=== PATIENT | male | born 1955 | race Asian ===

== ENCOUNTER 2022-07-06 15:30 | Emergency (ER) | payer OTHER ==
[~2022-07-06] VITALS: Ht 172.7 cm; Wt 73.7 kg
[2022-07-06] MEDS ORDERED: IOHEXOL 350 MG/ML 100 ML VIAL ONE (16:21)
[2022-07-06] MEDS ORDERED: SODIUM CHLORIDE 0.9% 100 ML ONE (16:21)
[2022-07-06] MEDS ORDERED: METF-1211 PO (16:34)
[2022-07-06] MEDS ORDERED: LOSA-382 PO (16:35)
[2022-07-06] MEDS ORDERED: TERA2CAP10 PO (16:35)
[2022-07-06 16:36] LABS: BASOPHILS % (AUTO) 0.8 % (0.0-2.0); EOSINOPHILS % (AUTO) 1.4 % (1.0-6.0); GLUCOSE,POINT OF CARE 150 MG/DL (70-110); HEMATOCRIT 41.7 % (41-53); HEMOGLOBIN 13.5 g/dL (13.5-17.5); LYMPHOCYTES # (AUTO) 1.9 K/uL (1.0-4.8); LYMPHOCYTES % (AUTO) 14.1 % (22.0-44.0); MEAN CORPUSCULAR HEMOGLOBIN 30.7 pg (26.0-34.0); MEAN CORPUSCULAR HGB CONC 32.5 G/dL (31.0-37.0); MEAN CORPUSCULAR VOLUME 95 fL (80-100); MONOCYTES # (AUTO) 0.8 K/uL (0.1-1.0); MONOCYTES % (AUTO) 5.8 % (2.0-9.0); NEUTROPHILS # (AUTO) 10.7 K/uL (1.8-7.7); NEUTROPHILS % (AUTO) 77.9 % (40.0-70.0); PLATELET COUNT (AUTO) 398 K/uL (150-450); RED BLOOD CELL COUNT(AUTO) 4.41 MIL/uL (4.50-5.90); RED CELL DISTRIBUTION WIDTH 12.9 % (11.5-14.5)
[2022-07-06] MEDS ORDERED: CLON-441 PO (16:36)
[2022-07-06] MEDS ORDERED: ATOR20TA86 PO (16:37)
[2022-07-06] MEDS ORDERED: METO25 PO (16:38)
[2022-07-06] MEDS ORDERED: AMLO-257 PO (16:38)
[2022-07-06] MEDS ORDERED: ASPI325T87 PO (16:38)
[2022-07-06 16:49] LABS: ANION GAP 11 mmol/L (8-16); CALCIUM, TOTAL 9.2 mg/dL (8.8-10.5); CARBON DIOXIDE 26 mmol/L (22-29); CHLORIDE 101 mmol/L (98-107); CREATININE 1.03 mg/dL (0.60-1.30); GLOMERULAR FILTR. RATE CALC > 60 mL/min (>60); GLUCOSE,RANDOM 169 mg/dL (70-110); SODIUM SERUM 138 mmol/L (136-145); UREA NITROGEN, BLOOD 14 mg/dL (7-18)
[2022-07-06 16:55] LABS: ALANINE AMINOTRANSFERASE 33 U/L (12-78); ALBUMIN 3.8 g/dL (3.4-5.0); ALKALINE PHOSPHATASE 61 U/L (46-116); ASPARTATE AMINOTRANSFERASE 22 U/L (15-37); BILIRUBIN,TOTAL 0.2 mg/dL (0.1-1.0); TOTAL PROTEIN, SERUM 8.5 g/dL (6.4-8.2)
[2022-07-06 17:03] LABS: PROTHROMBIN TIME 10.3 SEC (9.4-11.6)
[2022-07-06 17:08] VITALS: BP 172/87
[2022-07-06] MEDS ORDERED: LABETALOL HCL 5 MG/ML 20 ML VIAL IVP ONE (17:15)
== END 2022-07-06 17:23 | disposition short-term general hospital (02) ==
LOC: EMS 15:34
DX: I67.1 Cerebral aneurysm, nonruptured (principal); I10 Essential (primary) hypertension; Z98.890 Other specified postprocedural states
CPT/HCPCS: 99291; 70496; 96374; 71045; 80053; 82962; 84484; 85025; 85610; 85730; 86850; 86900; 86901; 36415; 70498; 82948; 93005; 70450; J3490; Q9967; J7050